=== PATIENT | female | born 1980 | race Caucasian/White ===

== ENCOUNTER 2018-03-05 18:22 | Emergency (ER) | payer SELFPAY ==
[~2018-03-05] VITALS: Ht 170.2 cm; Wt 84.0 kg
[2018-03-05 18:25] VITALS: BP 146/86
[2018-03-05] MEDS ORDERED: KEPP250 PO (18:28)
== END 2018-03-05 18:31 | disposition left against medical advice (07) ==
LOC: ER 18:22
DX: Z53.21 Procedure and treatment not carried out due to patient leaving prior to being seen by health care provider (principal)